=== PATIENT | female | born 1970 | race Caucasian/White ===

== ENCOUNTER 2016-09-06 12:14 | Emergency (ER) | payer OTHER ==
[~2016-09-06] VITALS: Ht 157.5 cm; Wt 120.2 kg
[2016-09-06 14:10] LABS: ADD MIUA? YES; BILIRUBIN NEGATIVE; BLOOD NEGATIVE; COLOR AMBER ((YELLOW)); GLUCOSE (STRIP) NEGATIVE; KETONES NEGATIVE; LEUKOCYTES TRACE; NITRITE POSITIVE; PROTEIN (STRIP) NEGATIVE; SPECIFIC GRAVITY 1.004 (1.000-1.030)
[2016-09-06 14:24] LABS: BACTERIA RARE /HPF; EPITHELIAL CELLS 1+ /HPF; MUCUS NONE SEEN /LPF; RED BLOOD CELLS 0-5 /HPF (0-5)
[2016-09-06 15:20] LABS: INTERNAL CONTROL VALID? YES
[2016-09-06] MEDS ORDERED: KEFLEX500 MG PO (16:14)
[2016-09-06] MEDS ORDERED: GABAPENTIN600 MG PO (16:29)
[2016-09-06] MEDS ORDERED: VENLAFAXINE HCL75 M3 PO (16:30)
[2016-09-06] MEDS ORDERED: LISINOPRIL-HCT1 EACH PO (16:30)
[2016-09-06] MEDS ORDERED: ZOFRAN4 MG PO (16:30)
[2016-09-06 16:49] VITALS: BP 144/85
[2016-09-08 13:13] LABS: CHLAMYDIA TRACHOMATIS NEGATIVE; NEISSERIA GONORRHOEAE NEGATIVE
== END 2016-09-06 16:53 | disposition home or self-care (01) ==
LOC: EME 12:14 → RME 12:14
PROVIDERS: Physician Assistant
DX: N39.0 Urinary tract infection, site not specified (principal); N90.89 Other specified noninflammatory disorders of vulva and perineum; Z11.3 Encounter for screening for infections with a predominantly sexual mode of transmission; I10 Essential (primary) hypertension
CPT/HCPCS: 81003; 84703; 87086; 87210; 87491; 87591; 99281; 99284; J0696

== ENCOUNTER 2016-12-31 09:16 | Emergency (ER) | payer OTHER ==
[~2016-12-31] VITALS: Ht 157.5 cm; Wt 121.8 kg
[~2016-12-31 09:16] MED LIST: GABAPENTIN600 MG PO; KEFLEX500 MG PO; LISINOPRIL-HCT1 EACH PO; VENLAFAXINE HCL75 M3 PO; ZOFRAN4 MG PO
[2016-12-31 10:09] LABS: ADD MIUA? YES; BILIRUBIN NEGATIVE; BLOOD NEGATIVE; COLOR YELLOW ((YELLOW)); GLUCOSE (STRIP) NEGATIVE; KETONES NEGATIVE; LEUKOCYTES MODERATE; NITRITE NEGATIVE; PROTEIN (STRIP) 30; SPECIFIC GRAVITY 1.021 (1.000-1.030); UROBILINOGEN 0.2 MG/DL (0.2-1.0)
[2016-12-31] MEDS ORDERED: ALLOPURINOL100 MG PO (10:09)
[2016-12-31] MEDS ORDERED: SUMATRIPTAN SU100 MG PO (10:10)
[2016-12-31] MEDS ORDERED: METHOCARBAMOL750 MG PO (10:10)
[2016-12-31] MEDS ORDERED: DESYREL100 MG PO (10:10)
[2016-12-31] MEDS ORDERED: OXYCODONE HCL5 M1 PO (10:10)
[2016-12-31] MEDS ORDERED: TIZANIDINE HCL4 MG PO (10:11)
[2016-12-31] MEDS ORDERED: NUCYNTA ER100 MG PO (10:11)
[2016-12-31] MEDS ORDERED: PROAIR HFA8.5 GM IH (10:12)
[2016-12-31 10:37] LABS: BACTERIA 1+ /HPF; CALCIUM OXALATE CRYSTALS 3+ /HPF; EPITHELIAL CELLS 4+ /HPF; MUCUS 1+ /LPF; RED BLOOD CELLS 0-5 /HPF (0-5); WHITE BLOOD CELLS 15-20 /HPF (0-5)
[2016-12-31 10:40] LABS: EOSINOPHIL (%) 1.6 % (0-5); EOSINOPHIL COUNT 0.1 K/uL (0-0.3); IMMATURE GRANULOCYTE (%) 0.1 % (0.0-0.7); INSTRUMENT ABS NEUTROPHIL CT 5.2 K/uL; LYMPHOCYTE COUNT 2.2 K/uL (1.0-2.8); MCH 29.4 PG (29.0-34.0); MCHC 32.6 G/DL (30.0-36.0); MCV 90.1 FL (83-99); MEAN PLAT.VOLUME 9.8 uM^3 (9.5-12.4); MONOCYTE (%) 4.6 % (3-12); MONOCYTE COUNT 0.4 K/uL (0-0.8); NEUTROPHIL (%) 65.4 % (45-76); NEUTROPHIL COUNT 5.2 K/uL (1.8-6.4); PLATELET COUNT 116 K/uL (156-360); RBC DIS.WIDTH-CV 13.7 % (11.8-14.6); RBC DIS.WIDTH-SD 45.4 % (39-53); RED BLOOD COUNT 4.77 M/uL (3.80-5.20)
[2016-12-31 10:56] LABS: CHLORIDE 103 mEq/L (99-109); POTASSIUM 3.6 mEq/L (3.7-5.4); SODIUM 140 mEq/L (136-147)
[2016-12-31 10:58] LABS: GLUCOSE 106 mg/dL (70-99)
[2016-12-31 10:59] LABS: ANION GAP 10 MEQ/L (2-14)
[2016-12-31 11:00] LABS: TOTAL BILIRUBIN 0.4 mg/dL (0.0-1.0)
[2016-12-31 11:02] LABS: ALKALINE PHOSPHATASE 79 IU/L (3-129); GFR ESTIMATE (CALCULATED) > 59 mL/min/
[2016-12-31 11:03] LABS: UREA NITROGEN (BUN) 14 mg/dL (9-23)
[2016-12-31 11:05] LABS: LIPASE 29 U/L (1.0-51.0)
[2016-12-31 11:13] LABS: QUANTITATIVE HCG 5.4 MIU/ML
[2016-12-31] MEDS ORDERED: INDOCIN50 MG PO (13:15)
[2016-12-31] MEDS ORDERED: BACTRIM,SEPT1 TABLET PO (13:19)
[2016-12-31 13:25] VITALS: BP 124/73
== END 2016-12-31 13:26 | disposition home or self-care (01) ==
LOC: EME 09:16
PROVIDERS: Physician Assistant
DX: R11.0 Nausea (principal); R07.89 Other chest pain; R10.9 Unspecified abdominal pain; R19.7 Diarrhea, unspecified; Z87.442 Personal history of urinary calculi; I10 Essential (primary) hypertension
CPT/HCPCS: 71020; 74176; 80053; 81003; 83690; 84702; 85025; 87086; 99281; 99284; J2550

== ENCOUNTER 2017-11-24 18:27 | Emergency (ER) | payer OTHER ==
[~2017-11-24] VITALS: Ht 157.5 cm; Wt 128.1 kg
[~2017-11-24 18:27] MED LIST changes: +ALLOPURINOL100 MG PO; +BACTRIM,SEPT1 TABLET PO; +DESYREL100 MG PO; +INDOCIN50 MG PO; +METHOCARBAMOL750 MG PO; +NUCYNTA ER100 MG PO; +OXYCODONE HCL5 M1 PO; +PROAIR HFA8.5 GM IH; +SUMATRIPTAN SU100 MG PO; +TIZANIDINE HCL4 MG PO
[2017-11-24 18:47] LABS: HEMATOCRIT 42.7 % (36.0-46.0); HEMOGLOBIN 14.5 G/DL (11.9-15.5); MCH 30.7 PG (29.0-34.0); MCV 90.5 FL (83-99); PLATELET COUNT 226 K/uL (156-360); RBC DIS.WIDTH-CV 13.5 % (11.8-14.6); RBC DIS.WIDTH-SD 44.9 % (39-53); RED BLOOD COUNT 4.72 M/uL (3.80-5.20); WHITE BLOOD COUNT 11.9 K/uL (4.1-10.2)
[2017-11-24 18:56] LABS: ALBUMIN 4.6 g/dL (3.2-4.8)
[2017-11-24 18:57] LABS: CHLORIDE 102 mEq/L (99-109); POTASSIUM 3.9 mEq/L (3.7-5.4); SODIUM 138 mEq/L (136-147)
[2017-11-24 18:59] LABS: GLUCOSE 79 mg/dL (70-99); TOTAL PROTEIN 8.6 g/dL (6.4-8.3)
[2017-11-24 19:01] LABS: TOTAL BILIRUBIN 0.2 mg/dL (0.0-1.0)
[2017-11-24 19:02] LABS: ALKALINE PHOSPHATASE 82 IU/L (3-129)
[2017-11-24 19:03] LABS: CREATININE 0.8 mg/dL (0.6-1.3); GFR ESTIMATE (CALCULATED) > 59 mL/min/
[2017-11-24 19:04] LABS: AST (GOT) 28 IU/L (2-34); UREA NITROGEN (BUN) 12 mg/dL (9-23)
[2017-11-24 19:05] LABS: ALT (GPT) 32 IU/L (3-49)
[2017-11-24 19:12] LABS: QUANTITATIVE HCG 5.6 MIU/ML
[2017-11-24 19:58] LABS: APPEARANCE CLEAR ((CLEAR)); BILIRUBIN NEGATIVE; BLOOD NEGATIVE; COLOR STRAW ((YELLOW)); GLUCOSE (STRIP) NEGATIVE; KETONES NEGATIVE; LEUKOCYTES NEGATIVE; NITRITE NEGATIVE; PROTEIN (STRIP) NEGATIVE; SPECIFIC GRAVITY 1.006 (1.000-1.030); UCUL ADDED? NO; UROBILINOGEN 0.2 MG/DL (0.2-1.0)
[2017-11-25] MEDS ORDERED: BENTYL10 MG PO (00:43)
[2017-11-25 01:26] VITALS: BP 155/85
== END 2017-11-25 01:27 | disposition home or self-care (01) ==
LOC: EME 18:27 → RME 18:27
DX: K58.0 Irritable bowel syndrome with diarrhea (principal); R11.2 Nausea with vomiting, unspecified; K76.0 Fatty (change of) liver, not elsewhere classified; M47.897 Other spondylosis, lumbosacral region; Z87.440 Personal history of urinary (tract) infections; I10 Essential (primary) hypertension; Z90.49 Acquired absence of other specified parts of digestive tract
CPT/HCPCS: 74177; 80053; 81003; 84702; 85027; 99281; 99285; J2405; J7030